=== PATIENT | male | born 2000 | race Caucasian/White ===

== ENCOUNTER 2020-04-19 10:25 | Emergency (ER) | payer BC ==
[~2020-04-19] VITALS: Ht 188 cm; Wt 95.5 kg
[2020-04-19 10:41] VITALS: BP 143/82; TEMP 98.6
[2020-04-19] MEDS ORDERED: ZITHROMAX Z PA250 MG PO (11:29)
[2020-04-19 11:51] VITALS: PULSE 78
== END 2020-04-19 11:51 | disposition home or self-care (01) ==
LOC: COL.ER 10:25
DX: J06.9 Acute upper respiratory infection, unspecified (principal); R07.89 Other chest pain; Z20.828 Contact with and (suspected) exposure to other viral communicable diseases
CPT/HCPCS: J8540